=== PATIENT | female | born 1985 | race Caucasian/White ===

== ENCOUNTER 2016-05-11 22:23 | Emergency (ER) | payer OTHER ==
[2016-05-11 22:35] VITALS: O2SAT 96
--- NOTE | 2016-05-11 23:15 | EDPHY ---
H & P Time Seen by Provider: 05/11/16 22:36 HPI/ROS: CHIEF COMPLAINT: Left hand injury from a table saw HISTORY OF PRESENT ILLNESS: 30-year-old female presents emergency department with a laceration to her left index finger and thumb from a table saw. Patient is [id number], tetanus is up-to-date, she denies numbness or tingling in her hand, she denies other injuries. REVIEW OF SYSTEMS: A comprehensive 10 point review of systems is otherwise negative aside from elements mentioned in the history of present illness. Smoking Status: Never smoked Physical Exam: GEN: Awake, alert, oriented, no acute distress RESP: nl resp effort MSK: Left index finger with tenderness to palpation at PIP joint, patient avulsion laceration to distal aspect of left index finger with fingernail avulsion and nail bed injury, sensation intact to light touch, no tenderness to PIP joint or MCP joint, left thumb with 2 cm skin avulsion to palmar aspect of distal thumb Constitutional: Initial Vital Signs Temperature (C) 36.8 C 05/11/16 22:33 Heart Rate 75 05/11/16 22:33 Respiratory Rate 18 05/11/16 22:33 Blood Pressure 116/89 H 05/11/16 22:33 O2 Sat (%) 96 05/11/16 22:33 O2 Delivery Mode Room Air Allergies/Adverse Reactions: gentamicin Allergy (Verified 05/11/16 22:29) Home Medications: Medication Instructions Recorded Cephalexin [Keflex] 500 mg PO TID 4 Days 05/12/16 Hydrocodone/APAP 5/325 [Docena 1 tab PO Q4H PRN #7 tab 05/12/16 5/325] MDM/Departure - MDM Diagnostics: Left hand x-ray independently reviewed by me Impression: Soft tissue injury associated with an open fracture and minimal amputation of the distal tuft of the left second digit as well as a intra-articular fracture at the base of the distal phalanx. Dictated By: Remi Childs MD Procedures: Procedure: Laceration repair. Verbal consent was obtained from the patient. The 2 cm laceration on the left thumb was anesthetized using 1% lidocaine without epinephrine mixed with 0.5% bupivacaine without epinephrine digital block. The wound was carefully irrigated by the emergency department software support technician. Next, the wound was prepped and draped in sterile fashion and explored to its base with a gloved finger. There were no deep structures involved. No tendon injury was identified. No vascular injury was identified. No foreign bodies were identified. The wound was repaired with 5.0 Prolene, 5 simple interrupted sutures. The wound repair was complex. Multiple wound margins required revising. Multiple flaps required alignment. Significant debridement was required. The procedure was performed by myself. Tetanus and antibiotic status were addressed. Left index finger was anesthetized with 1% lidocaine without epinephrine mixed with 0.5% bupivacaine without epinephrine using a digital block. Finger was cleaned by the emergency department software support technician, finger was debrided using sterile technique, there is no suturable laceration. There is damage to the nail bed. Dressing was placed by the emergency department software support technician with a finger splint. Medications Given: Discontinued Medications Hydrocodone Bitart/Acetaminophen (Docena 5/325mg Prepack#6) 1 btl TAKEHOME EDNOW ONE Stop: 05/12/16 01:24 Last Admin: 05/12/16 01:27 Dose: 1 btl Bacitracin (Bacitracin Ointment Tube) 1 diana TP EDNOW ONE Stop: 05/12/16 00:40 Last Admin: 05/12/16 01:11 Dose: 1 diana Cephalexin (Keflex 500 Mg Prepack#4) 1 btl TAKEHOME EDNOW ONE PRN Reason: Protocol Stop: 05/12/16 01:24 Last Admin: 05/12/16 01:27 Dose: 1 btl Cefazolin Sodium/Dextrose (Ancef 1 Gm (Premix)) 50 mls @ 200 mls/hr IV EDNOW ONE PRN Reason: Protocol Stop: 05/11/16 23:29 Last Admin: 05/11/16 23:43 Dose: 50 mls ED Course/Re-evaluation: 30-year-old female presents with a open fracture to her left index finger from a table saw and a avulsion laceration to her left thumb. IV was started, patient was given 1 g of Ancef IV, tetanus is up-to-date. Patient is neurovascularly intact, finger was cleaned, dressing was placed in finger was placed in a splint. She is discharged home with a prescription for Keflex and Docena. She agrees to follow up with Dr. Gallagher early next week. She is to keep her dressing clean and dry and she is given strict return precautions for any pain that is not controlled, any signs or symptoms of infection. - Depart Disposition: Home, Routine, Self-Care Clinical Impression: Open fracture of phalanx of left index finger Qualifiers: Encounter type: initial encounter Phalanx: distal Fracture alignment: displaced Qualified Code(s): S62.631B - Displaced fracture of distal phalanx of left index finger, initial encounter for open fracture Avulsion of skin of left thumb Qualifiers: Encounter type: initial encounter Qualified Code(s): S61.002A - Unspecified open wound of left thumb without damage to nail, initial encounter Condition: Good Instructions: Cephalexin (By mouth), Hydrocodone/Acetaminophen (By mouth), Finger Fracture (ED), Finger Laceration (ED), Nail Avulsion (ED) Additional Instructions: Keep your dressing in place until you follow up with the hand surgeon, call Saturday to schedule this appointment. Take your antibiotics 3 times a day for 5 days. Take 600 mg of ibuprofen every 8 hours with food for 5 days, take Docena for severe pain. Elevate your hand. Return to the emergency department for any signs of infection, fevers, pain that is not controlled, red streaks up your arm, any other questions or concerns. Prescriptions: Cephalexin [Keflex] 500 mg PO TID 4 Days Hydrocodone/APAP 5/325 [Docena 5/325] 1 tab PO Q4H PRN #7 tab PRN Reason: Pain, Moderate Referrals: Fred Gallagher MD [Medical Doctor] - As per Instructions (Hand surgeon on-call)
[2016-05-12] MEDS ORDERED: BACITRACIN ZINC 14.2 GM OINTTUBE TP ONE (00:39)
[2016-05-12] MEDS ORDERED: HYDROCOD/APAP 5/325 PREPACK#6 BTL TAKEHOME ONE (01:23)
[2016-05-12] MEDS ORDERED: CEPHALEXIN 500MG PREPACK#4 BTL TAKEHOME ONE (01:23)
[2016-05-12 01:39] VITALS: BP 100/66; PULSE 74; RESP 16; TEMP 97.9
== END 2016-05-12 01:47 | disposition home or self-care (01) ==
PROC: 0HQGXZZ Repair Left Hand Skin, External Approach (ICD-10-PCS; principal; 2016-05-11)
DX: S62.631B Displaced fracture of distal phalanx of left index finger, initial encounter for open fracture (principal); S61.002A Unspecified open wound of left thumb without damage to nail, initial encounter; W31.2XXA Contact with powered woodworking and forming machines, initial encounter
CPT/HCPCS: 96365; J0690